=== PATIENT | female | born 1945 ===

== ENCOUNTER 2023-04-19 13:24 | Outpatient (CLI) | payer MEDICARE, SELFPAY ==
--- NOTE | 2023-04-19 13:33 | XR_ITS ---
WS: [id number] SCREENING DEXA SCAN [facility] CLINICAL INFORMATION: FAMILIAL HYPERCHOLESTEROLEMIA/HYPOTHYROIDISM COMPARISON: None. FINDINGS: The L1-L4 bone mineral density measures 1.128 g/cm2. This corresponds to a T score score of -0.4 and Z score of 1.1. Left femoral neck bone mineral density measures 0.953 g/cm2. This corresponds to a T score of -0.4 an d Z score of 1.3. Right femoral neck bone mineral density measures 1.050 g/cm2. This corresponds to a T score 0.3of and Z score of 2.1. Mean femoral neck bone mineral density measures 1.001 g/cm2. This corresponds to a T score of -0.1 an d Z score of 1.7. IMPRESSION: Normal bone mineralization. Patient's FRAX calculated 10 year probability for major osteoporotic fracture is 11.5% and osteoporot ic hip fracture is 2.2%.
== END 2023-04-19 13:25 | disposition home or self-care (01) ==
PROVIDERS: Visit Provider Nurse Practitioner
DX: Z13.820 Encounter for screening for osteoporosis (principal); E78.01 Familial hypercholesterolemia; E03.9 Hypothyroidism, unspecified
CPT/HCPCS: 77080

== ENCOUNTER 2023-04-20 09:07 | Outpatient (CLI) | payer MEDICARE, SELFPAY ==
--- NOTE | 2023-04-20 09:12 | MM_ITS ---
WS: [id number] VIEWS: MLO and CC views both breasts. 3D digital tomosynthesis is also included in this exam. Comparison made with prior exam of 10/08/2018, 11/14/2019, 01/18/2021,. Findings: There was no sign of mass, architectural distortion or suspicious calcification in either breast. The re are scattered areas of fibroglandular density Impression: MM/[place] [id number] BI-RADS: 2-Benign finding. FOLLOW-UP: 1 Year Follow-up This mammogram was also analyzed by the Computer Aided Detection System R2 Imag e Inventory Control Coordinator.
== END 2023-04-20 09:08 | disposition home or self-care (01) ==
LOC: RAD 09:08
PROVIDERS: PCP Family Medicine; Visit Provider Family Medicine
DX: Z12.31 Encounter for screening mammogram for malignant neoplasm of breast (principal)
CPT/HCPCS: 77063; 77067